=== PATIENT | female | born 1970 | race African-American/Black ===

== ENCOUNTER 2017-11-25 11:19 | Emergency (ER) | payer OTHER ==
[2017-11-25 11:36] VITALS: BP 160/80; PULSE 59; TEMP 98.7; BMI 54.8
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
== END 2017-11-25 12:04 | disposition home or self-care (01) ==
LOC: JERFT 11:19
DX: S39.012A Strain of muscle, fascia and tendon of lower back, initial encounter (principal); V49.49XA Driver injured in collision with other motor vehicles in traffic accident, initial encounter; Y92.488 Other paved roadways as the place of occurrence of the external cause; Y93.89 Activity, other specified; Y99.8 Other external cause status; Z68.43 Body mass index [BMI] 50.0-59.9, adult
CPT/HCPCS: 99281-25

== ENCOUNTER 2018-04-20 12:05 | Emergency (ER) | payer SELFPAY ==
[2018-04-20 12:15] VITALS: TEMP 98.2; BMI 58.6
--- NOTE | 2018-04-20 13:14 | PDOC ---
History of Present Illness - General Chief Complaint: Blood Pressure Problem Stated Complaint: HYPERTENSIVE - History of Present Illness Initial Comments: 04/20/18 13:14 48 yo female with PMH Morbid Obesity presents with HTN. She states she had a migraine headache 2 days ago and went to urgent care yesterday. She usually takes motrin/tylenol and a nap for her migraines which she has good success with. She states that her blood pressure yesterday was 180/118 at Urgent care and they told her she should follow up for blood pressure control or "she could " prompting her to come in today. She states that is about where her blood pressure usually is. She states she does have a primary and knows the address but does not recall the exact name. Denies any current symptoms at all including denying headache, blurred vision, weakness, parasthesias. Past History - Past Medical History Allergies/Adverse Reactions: Allergies Allergy/AdvReac Type Severity Reaction Status Date / Time No Known Allergies Allergy Verified 10/05/13 12:24 Home Medications: Ambulatory Orders Hydrochlorothiazide [Hctz -] 25 mg PO DAILY #7 tablet 04/20/18 COPD: No - Immunization History Immunization Up to Date: Yes - Suicide/Smoking/Psychosocial Hx Smoking History: Never smoked Information on smoking cessation initiated: No Hx Alcohol Use: No Drug/Substance Use Hx: No Substance Use Type: None *Physical Exam - Vital Signs Last Vital Signs Temp Pulse Resp BP Pulse Ox 98.2 F 76 16 188/89 H 97 04/20/18 12:11 04/20/18 12:11 04/20/18 12:11 04/20/18 12:11 04/20/18 12:11 - Physical Exam Comments: 04/20/18 13:14 GEN: A&O, no acute distress, Morbidly obese HEENT: PERRL, EOMI NECK: Supple HEART: RRR, no murmurs noted LUNGS: CTA b/l though decreased likely due to body habitus ABDOMEN: Soft, nontender, obese EXTREMITIES: Normal ROM, no calf tenderness or peripheral edema NEURO: normal strength and sensation throughout, normal gait observed, CN II- XII grossly in tact Moderate Sedation - Procedure Monitoring Vital Signs: Procedure Monitoring Vital Signs Temperature 98.2 F 04/20/18 12:11 Pulse Rate 76 04/20/18 12:11 Respiratory Rate 16 04/20/18 12:11 Blood Pressure 188/89 H 04/20/18 12:11 O2 Sat by Pulse Oximetry (%) 97 04/20/18 12:11 ED Treatment Course - LABORATORY CBC & Chemistry Diagram: 04/20/18 14:28 04/20/18 14:28 Medical Decision Making - Medical Decision Making 04/20/18 13:53 48 yo female morbidly obese presents with HTN. She states she has never been on medications in the past but her blood pressure is about where it always is. CBC, CMP pending. HCTZ 25 mg PO and reassess b.p. Stressed importance of follow up with primary [facility]. Will likely d/c with Hctz 25 mg PO and close follow up with primary pending b.p improvement 04/20/18 15:31 B.P down to 175/101, discussed with patient the importance of follow up and she states she has an appointment for monday. *DC/Admit/Observation/Transfer Diagnosis at time of Disposition: HTN (hypertension) - Discharge Dispostion Disposition: HOME Condition at time of disposition: Stable Decision to Admit order: No - Prescriptions Prescriptions: Hydrochlorothiazide [Hctz -] 25 mg PO DAILY #7 tablet - Referrals - Patient Instructions Printed Discharge Instructions: DI for High Blood Pressure Additional Instructions: You were seen in the ER for high blood pressure. You were given a medication called hydrochlorothiazide which improved your blood pressure, though it is still high. It is very important that you follow up with your primary care physician as soon as possible to get your blood pressure under control. You are being given Hydrochlorothiazide 25 mg by mouth once daily for the next 3 days as you have an appointment for monday with your primary physician. If you have any severe headache, blurred vision, weakness in your face, arms, or legs, or any other concerning symptoms, you should return to the ER for further evaluation. - Post Discharge Activity
--- NOTE | 2018-04-20 13:24 | PDOC ---
Attending Attestation - Resident Resident Name: Ryland Lozada - ED Attending Attestation I have performed the following: I have examined & evaluated the patient, The case was reviewed & discussed with the resident, I agree w/resident's findings & plan - HPI HPI: 04/20/18 14:47 The patient is a 48 year old female, with a significant past medical history of elevated blood pressure (not on medications) and migraines, who presents to the emergency department with, elevated blood pressure. Patient was seen in urgent care 2 days ago for migraine at which time her blood pressure was 180/118 and was advised to report to the ED for further evaluation. She denies recent fevers, chills, dizziness. She denies recent nausea, vomit, diarrhea or constipation. She denies recent dysuria, frequency, urgency or hematuria. She denies recent chest pain or shortness of breath. Allergies: NKDA - Physicial Exam PE: 04/20/18 14:47 GENERAL: Awake, alert, and fully oriented, in no acute distress HEAD: No signs of trauma ENT: Moist mucosa NECK: Normal ROM, supple, no lymphadenopathy, JVD, or masses LUNGS: Breath sounds equal, clear to auscultation bilaterally. No wheezes, and no crackles HEART: Regular rate and rhythm, normal S1 and S2, no murmurs, rubs or gallops ABDOMEN: Soft, nontender, normoactive bowel sounds. No guarding, no rebound. No masses EXTREMITIES: Normal range of motion, no edema. No clubbing or cyanosis. No cords, erythema, or tenderness NEUROLOGICAL: Cranial nerves II through XII grossly intact. Normal speech SKIN: Warm, Dry, normal turgor, no rashes or lesions noted. <Trevor John - Last Filed: 04/20/18 15:54> - Medical Decision Making 04/20/18 15:29 Pt presents to the ED with asymptomatic HTN that she reports is chronic, although she is on no medications. Labs drawn to rule out kidney damage and are negative. Started on HCTZ. Pt has follow up with PMD on Monday. <Shelly Polanco - Last Filed: 04/22/18 00:38> Attestations - Attestations 04/20/18 14:48 Documentation prepared by Trevor John, acting as medical case manager for Shelly Polanco MD. <Trevor John - Last Filed: 04/20/18 15:54>
[2018-04-20] MEDS ORDERED: HYDROCHLOROTHIAZIDE 25 MG TABLET (FP) PO ONE (13:52)
[2018-04-20] MEDS ORDERED: HYDROCHLOROTHIAZIDE 25 MG TABLET (FP) ONE (14:01)
[2018-04-20 14:41] LABS: HEMATOCRIT 34.2 % (32.4-45.2); HEMOGLOBIN 11.4 GM/dL (10.7-15.3); MCH 28.5 pg (25.7-33.7); MCHC 33.4 g/dl (32.0-36.0); MEAN CELL VOLUME 85.4 fl (80-96); MEAN PLT VOLUME 9.1 fl (7.5-11.1); PLATELET COUNT 285 K/MM3 (134-434); RBC 4.01 M/mm3 (3.60-5.2); RDW 16.6 % (11.6-15.6); WHITE BLOOD COUNT 4.7 K/mm3 (4.0-10.0)
[2018-04-20 15:10] LABS: ALBUMIN 3.2 g/dl (3.4-5.0); ALK PHOS 84 U/L (45-117); ANION GAP 5 MMOL/L (8-16); BILIRUBIN,TOTAL 0.2 mg/dL (0.2-1); BLOOD UREA NITROGEN 15 mg/dL (7-18); CALCIUM 8.7 mg/dL (8.5-10.1); CHLORIDE 107 mmol/L (98-107); CO2 28 mmol/L (21-32); CREATININE 0.8 mg/dL (0.55-1.3); GLUCOSE,RANDOM 90 mg/dL (74-106); POTASSIUM 3.9 mmol/L (3.5-5.1); SGOT/AST 12 U/L (15-37); SGPT/ALT 16 U/L (13-61); SODIUM 140 mmol/L (136-145); TOT PROT 7.3 g/dl (6.4-8.2)
[2018-04-20 15:26] VITALS: BP 175/101; PULSE 78
== END 2018-04-20 16:01 | disposition home or self-care (01) ==
LOC: JER 12:05 → JERFT 12:05 → JER 16:01
DX: I10 Essential (primary) hypertension (principal); E66.01 Morbid (severe) obesity due to excess calories; Z68.43 Body mass index [BMI] 50.0-59.9, adult
CPT/HCPCS: 36415; 80053; 85027; 99282-25

== ENCOUNTER 2018-12-11 16:14 | Emergency (ER) | payer BC ==
--- NOTE | 2018-12-11 16:18 | PDOC ---
Rapid Medical Evaluation Time Seen by Provider: 12/11/18 16:15 Medical Evaluation: Allergies Allergy/AdvReac Type Severity Reaction Status Date / Time No Known Allergies Allergy Verified 10/05/13 12:24 12/11/18 16:15 [place] [facility] [place]: No focal findings Orders: EKG, labs Patient will proceed to ED for continued evaluation. Discharge Disposition - Diagnosis Hypokalemia - Referrals - Patient Instructions - Post Discharge Activity
[2018-12-11 16:20] VITALS: BP 184/77; PULSE 73; TEMP 98.5; BMI 57.9
[2018-12-11 16:49] LABS: BASO % 0.6 % (0-2.0); EOS % 1.1 % (0-4.5); HEMATOCRIT 35.8 % (32.4-45.2); HEMOGLOBIN 11.6 GM/dL (10.7-15.3); LYMPH % 31.5 % (8-40); MCH 27.8 pg (25.7-33.7); MCHC 32.5 g/dl (32.0-36.0); MEAN CELL VOLUME 85.7 fl (80-96); MEAN PLT VOLUME 8.6 fl (7.5-11.1); MONO % 7.7 % (3.8-10.2); NEUT % 59.1 % (42.8-82.8); PLATELET COUNT 416 K/MM3 (134-434); RBC 4.18 M/mm3 (3.60-5.2); RDW 16.5 % (11.6-15.6); WHITE BLOOD COUNT 7.3 K/mm3 (4.0-10.0)
--- NOTE | 2018-12-11 16:49 | PDOC ---
History of Present Illness - General Chief Complaint: Abnormal Lab Results (Outside) Stated Complaint: SENT BY PCP Time Seen by Provider: 12/11/18 16:15 History Source: Patient - History of Present Illness Timing/Duration: other Past History - Past Medical History Allergies/Adverse Reactions: Allergies Allergy/AdvReac Type Severity Reaction Status Date / Time No Known Allergies Allergy Verified 10/05/13 12:24 Home Medications: Ambulatory Orders Hydrochlorothiazide [Hctz -] 25 mg PO DAILY #7 tablet 04/20/18 COPD: No - Immunization History Immunization Up to Date: Yes - Psycho Social/Smoking Cessation Hx Smoking History: Never smoked Have you smoked in the past 12 months: No Information on smoking cessation initiated: No Hx Alcohol Use: No Drug/Substance Use Hx: No Substance Use Type: None Review of Systems - Review of Systems Constitutional: No: Chills, Fever, Malaise, Weakness Respiratory: No: Shortness of Breath Cardiac (ROS): No: Chest Pain ABD/GI: No: Constipated, Diarrhea, Nausea, Vomiting, Abdominal cramping : No: Dysuria, Discharge, Flank Pain, Hematuria *Physical Exam - Vital Signs Last Vital Signs Temp Pulse Resp BP Pulse Ox 98.5 F 73 18 184/77 H 97 12/11/18 16:17 12/11/18 16:17 12/11/18 16:17 12/11/18 16:17 12/11/18 16:17 - Physical Exam General Appearance: Yes: Appropriately Dressed. No: Apparent Distress HEENT: positive: Normal Voice Neck: positive: Supple Respiratory/Chest: positive: Lungs Clear, Normal Breath Sounds. negative: Respiratory Distress Cardiovascular: positive: Regular Rate, S1, S2 Gastrointestinal/Abdominal: positive: Soft. negative: Tender Musculoskeletal: negative: CVA Tenderness Integumentary: positive: Dry, Warm Neurologic: positive: Fully Oriented, Alert, Normal Mood/Affect ED Treatment Course - LABORATORY CBC & Chemistry Diagram: 12/11/18 16:25 12/11/18 16:27 Medical Decision Making - Medical Decision Making 12/11/18 16:47 48 yo morbidly obesed female, HTN, migraines, sent to ED for hypokalemia. Patient states this all started when, while at work today, her boss informed her that she needed to go home immediately "because I smelt bad" per pt. Patient then went to see her PMD who told her that maybe she has something "metabolic" going on but was unable to do labs in office. Pt then went to an UC on her own and had blood work done and told her K was 2. Patient medical complaints at this time including nausea, vomiting and diarrhea. Reports that she has been eating less secondary to trying to lose weight. See exam Hypokalemia ? 2/2 decreased po intake for weight loss Exam unremarkable EKG unremarkable K of 3 on labs, repleted w/ po potassium Rest of labs wnl, declined waiting for ua/preg results or rpt vitals Dc to maintain adequate nutrition and diet repletion of K, to f/u PMD Discharge - Discharge Information Problems reviewed: Yes Clinical Impression/Diagnosis: Hypokalemia, Body odor Condition: Stable Disposition: HOME - Follow up/Referral Referrals: Nena Dickinson MD [Primary Care Provider] - - Patient Discharge Instructions Patient Printed Discharge Instructions: DI for Hypokalemia Additional Instructions: Your potassium was 3.0 today and you were given 40 mg po potassium liquid Food high in potassium includes bananas, Oakes beans, Edwards beans, Kidney beans, Soybeans,Lentils. Please follow up with your PMD - Post Discharge Activity
[2018-12-11 17:07] LABS: BLOOD UREA NITROGEN 17.4 mg/dL (7-18); CALCIUM 9.4 mg/dL (8.5-10.1)
[2018-12-11] MEDS ORDERED: POTASSIUM CHLORIDE ORAL LIQUID 20 MEQ/15 ML PO ONE (18:10)
[2018-12-11] MEDS ORDERED: POTASSIUM CHLORIDE ORAL LIQUID 20 MEQ/15 ML ONE (18:14)
[2018-12-11 19:05] LABS: PH,URINE 5.5 (5.0-8.0); URINE APPEARANCE CLEAR; URINE BILIRUBIN NEGATIVE (NEGATIVE); URINE COLOR YELLOW; URINE GLUCOSE (UA) NEGATIVE (NEGATIVE); URINE KETONE NEGATIVE (NEGATIVE); URINE LEUK ESTERASE NEGATIVE (NEGATIVE); URINE NITRITE NEGATIVE (NEGATIVE); URINE PROTEIN NEGATIVE (NEGATIVE)
--- NOTE | 2018-12-12 09:54 | EKG ---
Test Reason : Blood Pressure : / mmHG Vent. Rate : 071 BPM Atrial Rate : 071 BPM P-R Int : 138 ms QRS Dur : 092 ms QT Int : 390 ms P-R-T Axes : 021 -08 001 degrees QTc Int : 423 ms NORMAL SINUS RHYTHM MINIMAL VOLTAGE CRITERIA FOR LVH, MAY BE NORMAL VARIANT BORDERLINE ECG NO PREVIOUS ECGS AVAILABLE Confirmed by GUERRERO HAY, ADELINA ([id number]) on 12/12/2018 9:53:36 AM Referred By: Confirmed By:ADELINA MASTERS MD
== END 2018-12-11 19:10 | disposition home or self-care (01) ==
LOC: JER 16:14
DX: E87.6 Hypokalemia (principal); L75.0 Bromhidrosis; I10 Essential (primary) hypertension; E66.01 Morbid (severe) obesity due to excess calories; Z68.43 Body mass index [BMI] 50.0-59.9, adult
CPT/HCPCS: 36415; 80048; 81003; 84703; 85025; 93005; 93010; 99283-25